=== PATIENT | female | born 1990 | race African-American/Black ===

== ENCOUNTER 2019-06-05 01:05 | Emergency (ER) | payer MEDICAID ==
[~2019-06-05] VITALS: Ht 167.6 cm; Wt 79.8 kg
[2019-06-05 01:09] VITALS: Ht 167.6 cm; Wt 79.8 kg
[2019-06-05 02:31] LABS: BASOPHIL % 0.1 % (0-2); PLATELET COUNT 209 x10^3mcL (130-400); RED CELL DISTRIBUTION WIDTH 13.8 % (11.5-14.5)
[2019-06-05 02:34] LABS: CALCIUM 7.9 mg/dL (8.5-10.1); CARBON DIOXIDE 25.4 mmol/L (21-32); CHLORIDE SERUM 105 mmol/L (98-107); CREATININE SERUM 0.5 mg/dL (0.6-1.0); GFR1 > 60 mL/min; GLUCOSE SERUM 71 mg/dL (74-106); POTASSIUM SERUM 3.7 mmol/L (3.5-5.1); SODIUM SERUM 141 mmol/L (136-145)
[2019-06-05 03:54] VITALS: BP 110/59
== END 2019-06-05 03:54 | disposition home or self-care (01) ==
LOC: ED 01:05
PROVIDERS: Emergency Medicine
DX: O26.893 Other specified pregnancy related conditions, third trimester (principal); R10.9 Unspecified abdominal pain; R11.0 Nausea; Z3A.35 35 weeks gestation of pregnancy
CPT/HCPCS: 36415

== ENCOUNTER 2019-11-17 11:10 | Emergency (ER) | payer MEDICAID ==
[~2019-11-17] VITALS: Ht 167.6 cm; Wt 74.4 kg
[2019-11-17 11:35] VITALS: Ht 167.6 cm; Wt 74.4 kg
[2019-11-17 12:19] VITALS: BP 132/62
== END 2019-11-17 12:19 | disposition home or self-care (01) ==
LOC: ED 11:10
DX: T16.2XXA Foreign body in left ear, initial encounter (principal); W45.8XXA Other foreign body or object entering through skin, initial encounter; Y93.89 Activity, other specified; Y92.89 Other specified places as the place of occurrence of the external cause; Y99.8 Other external cause status